=== PATIENT | male | born 1985 | race Caucasian/White ===

== ENCOUNTER → 2019-09-11 20:28 | Outpatient (CLI) | payer OTHER, SELFPAY ==
--- NOTE | 2019-09-11 | DI.MRI.S_ITS ---
PROCEDURE: MR FOOT RT WO CON INDICATIONS: PAIN IN UNSPECIFIEDANKLE AND JOINTS OF FOOT TECHNIQUE: Noncontrast sagittal T1 spin echo and T2 fast spin echo with fat saturation, long-axis T1 spin echo and T2 fast spin echo with fat saturation, short-axis T1 spin echo and T2 fast spin echo with fat saturation through the forefoot. COMPARISON: None. FINDINGS: Image quality: Excellent. Bones and joints: No bone marrow contusions or metatarsal stress fractures. The sesamoid bones appear in expected positions, without internal edema. Mild first MTP joint osteoarthritis is seen with joint space narrowing and subchondral cyst formation and first metatarsal head. No intraosseous lesions. Soft tissues: The visualized plantar foot muscles demonstrate normal signal and bulk. Visualized flexor and extensor tendons appear intact, without tenosynovitis. The distal insertions of the peroneus brevis and longus tendons appear intact. The principal Lisfranc ligament appears intact. No soft tissue ganglion cysts or bursal fluid collections. Sagittal images demonstrate no evidence for plantar plate tears. IMPRESSION: Mild first MTP joint osteoarthritis. No marrow edema. No fracture or dislocation. No stress fracture of metatarsal bones. No gross forefoot tendons and ligaments abnormality. Dictated by: Abdias Dinh M.D. on 09/12/2019 at 9:42 Approved by: Abdias Dinh M.D. on 09/12/2019 at 9:54
== END ==
PROVIDERS: Visit Provider Physician Assistant
DX: M25.571 Pain in right ankle and joints of right foot (principal); M19.071 Primary osteoarthritis, right ankle and foot
CPT/HCPCS: 73718